=== PATIENT | male | born 1940 | race Two or more races ===

== ENCOUNTER 2024-06-29 13:05 | Outpatient (RCR) | payer MEDICARE, MEDICAID, SELFPAY ==
--- NOTE | 2024-06-29 16:30 | CTCCONSULT_ITS ---
[facility] [address] [place], [place] [address] Consultation Note Date: 06/29/2024 MR#: [id number] Name: KARL HUDSON : 1940 Dx: C61 prostate cancer Attending physician. Terrie Barnett Referring physician. Adams Falk MD Reason for consultation. Patient with history of prostate CA referred to the cancer treatment center . History of Present Illness: Patient is an 84-year-old gentleman who had diagnosis of prostat e cancer back in November 15, 2018 when he had Ana score 7(3+4) )involving left lobe of the prostate. Patient has been treated with intermittent Lupron injections. PSA which initially remained low but capo to 7.8 on 05/05/2023. Had bone scan 06/05/2022 which had nonspecific uptake in L-spine and bhanu ible area. Plain x-ray did not show any suggestion of mets afterward. CT abdomen pelvis 06/20/2022 w as negative for abdominal pelvic or met disease. Patient just had labs performed at [facility] 06/22/2024 . His PSA was less than 0.1 along with unremarkable labs overall in terms of CBC CMP. Patient state s that he last had his Lupron injections from a doctor in [place] in March 31 2024. He is thus due f or another injection around mid July and would like to continue with this. He is not interested in any locally directed therapy to his prostate cancer in terms of surgery or radiation. Patient rep ortedly tolerated the injections well. Patient who has been followed by several urologists only rece ntly has been followed by Dr. Falk. Past Medical History: High blood pressure gallbladder disease Meds. 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 Social drinker non-sm oker Review of Systems: Denies bone pain has had sweats shortness of breath exertion heartburn increased t jesus leak urine mole in chest nocturia easy bruising Physical Exam: General: Adequate nourished appearing gentleman in no acute distress HEENT: 2 tiny moles in the low neck no adenopathy CV: Chest clear to auscultation heart regular rate and rhythm ABD: Soft no organomegaly or tenderness EXT: No cyanosis clubbing or edema Assessment:#1. Patient with history of prostate CA [place] score 7 (3+4) following biopsy November 2018 . #2. Treated largely with hormone manipulation intermittently over the years, most recently 3 months Lupron injections given in March 31 in [place]. Also taking Casodex prescribed to him by primary pro vider. #3. Most recent lab shows PSA be less than 0.1 indicating the hormone manipulation is still working. #4 Patient desires to continue with hormone manipulation which I believe is reasonable and is tolerat ing treatment well. Side effects explained. #5. told patient about taking Citracal twice daily. #6. No recent imaging studies regarding the prostate cancer. I believe PET scan would be reasonable at this time and we will order this. #7. Thank you much allow me to evaluate and manage this patient. Cc: Bry Barnett PA-C family medicine [facility] Adams Falk MD Electronically signed by: Tanmay Kolb MD, DABR 06/29/2024 4:28 PM
== END 2024-07-16 23:59 | disposition home or self-care (01) ==
LOC: SCTC 13:05
PROVIDERS: PCP Physician Assistant; Referring Provider Urology; Visit Provider Radiology Therapeutic Radiology
DX: C61 Malignant neoplasm of prostate (principal); Z79.818 Long term (current) use of other agents affecting estrogen receptors and estrogen levels
CPT/HCPCS: 99213; G0463

== ENCOUNTER 2024-07-25 07:17 | Outpatient (RCR) | payer MEDICARE, MEDICAID, SELFPAY | END 2024-08-16 23:59 | disposition home or self-care (01) | LOC: SCTC 07:17 | PROVIDERS: PCP Physician Assistant; Referring Provider Physician Assistant; Visit Provider Radiology Therapeutic Radiology | DX: Z51.11 Encounter for antineoplastic chemotherapy (principal); C61 Malignant neoplasm of prostate | CPT/HCPCS: 96402; J9217 ==

== ENCOUNTER → 2024-07-25 | Outpatient (CLI) | payer MEDICARE, MEDICAID, SELFPAY ==
--- NOTE | 2024-07-28 12:30 | XR_ITS ---
EXAMINATION: PET/CT FUSION SKULL TO THIGH EXAM DATE AND TIME: July 28, 2024 1348 hours INDICATIONS: Diagnosis prostate carcinoma staging prior to treatment CTDI:vol (mGy) 7.70 DLP: (mGycm) 703.54 PROCEDURE: 16.4 mCi FDG was administered intravenously To allow for distribution and uptake of radiotracer, the patient was allowed to rest quietly in a shielded room. Imaging was performed on an integrated 16-slice PET/CT scanner, with scanning from the skull base to the mid thigh. Serum blood glucose at the time of the injection was measured 96 mg/dL. CT scanning was performed without oral or intravenous contrast material. FINDINGS: Head and Neck: There is no dimitris hypermetabolism in the neck. The visualized portions of the brain are normal in appearance on CT. Chest: There is no dimitris hypermetabolism in the chest. There are no pulmonary nodules. Abdomen and Pelvis: There is no dimitris hypermetabolism in retroperitoneal or pelvic chains. The spleen is normal in size and FDG avidity. Musculoskeletal: Marrow uptake is within normal range. IMPRESSION: No findings of metastatic disease
== END | disposition home or self-care (01) ==
PROVIDERS: PCP Family Medicine; Referring Provider Radiology Therapeutic Radiology; Visit Provider Radiology Therapeutic Radiology
DX: C61 Malignant neoplasm of prostate (principal)
CPT/HCPCS: 78815; 96402; A9552

== ENCOUNTER → 2024-07-28 | Outpatient (CLI) | payer MEDICARE, MEDICAID, SELFPAY | END | disposition home or self-care (01) | LOC: CDIM 12:43 | PROVIDERS: PCP Physician Assistant; Referring Provider Radiology Therapeutic Radiology; Visit Provider Radiology Therapeutic Radiology | DX: C61 Malignant neoplasm of prostate (principal) ==

== ENCOUNTER → 2024-10-11 | Outpatient (BNVA) | payer MEDICARE, MEDICAID, SELFPAY | END | disposition home or self-care (01) | PROVIDERS: PCP Physician Assistant; Referring Provider Physician Assistant; Visit Provider Urology | DX: C61 Malignant neoplasm of prostate (principal); Z80.42 Family history of malignant neoplasm of prostate; I10 Essential (primary) hypertension; I25.10 Atherosclerotic heart disease of native coronary artery without angina pectoris; G20.A1 Parkinson's disease without dyskinesia, without mention of fluctuations | CPT/HCPCS: 99212; G0463 ==

== ENCOUNTER 2024-10-31 14:35 | Outpatient (RCR) | payer MEDICARE, MEDICAID, SELFPAY ==
--- NOTE | 2024-10-27 13:00 | CTCFLWUP_ITS ---
[facility] [address] [place], [place] [address] FOLLOW-UP NOTE Date: 10/27/2024 MR#: [id number] Name: KARL HUDSON : 1940 Dx: C61 Malignant neoplasm of prostate Identification. History of prostate CA diagnosed November 15, 2018 Ana score 7 involving left lobe of the prostate. (3+4) Patient reportedly had limited Lupron injections under a prior urologist direction. Most recent PSA had risen to 7.8 on 05/05/2023. Bone scan 06/05/2022 with nonspecific uptake with plain x-ray did not suggest mets. CT of the pelvis 06/20/2022 negative for abdominal met disease. PSA less than 0.1 and unremarkable in terms of CMP CBC overall 06/22/2024. PET scan ordered on 07/28/2024 did not show any evidence of mets. Patient feeling well would like to just continue with the Lupron injections and not get any other form of treatment.. I will order labs prior to his next visit in 3 months and continue with the Lupron injections. Side effects explained. Told to take Citracal twice daily. Electronically signed by: Tanmay Kolb M.D. 10/27/2024 12:58 PM
== END 2024-11-14 23:59 | disposition home or self-care (01) ==
LOC: SCTC 14:35
PROVIDERS: PCP Physician Assistant; Referring Provider Radiology Therapeutic Radiology; Visit Provider Radiology Therapeutic Radiology
DX: Z51.11 Encounter for antineoplastic chemotherapy (principal); C61 Malignant neoplasm of prostate; Z79.818 Long term (current) use of other agents affecting estrogen receptors and estrogen levels
CPT/HCPCS: 96402; 99212; J9217; G0463

== ENCOUNTER → 2025-01-30 | Outpatient (CLI) | payer MEDICARE, MEDICAID, SELFPAY ==
[2025-01-30 14:48] LABS: Basophils % (Auto) 1 % (0-2.5); Eosinophils # (Auto) 0.1 Thou/mm3 (0.0-0.5); Eosinophils % (Auto) 1 % (0-10); Hematocrit 37.1 % (41.0-53.0); Immature Granulocytes % (Auto) 0 % (0-0); Immature Granulocytes Auto 0.01 Thou/mm3 (0.00-0.00); Lymphocytes # (Auto) 1.4 Thou/mm3 (1.0-4.8); Lymphocytes % (Auto) 33 % (10-50); Mean Corpuscular Hemoglobin 34.9 pg (25.0-35.0); Mean Corpuscular Volume 100 fL (80-100); Monocytes # (Auto) 0.3 Thou/mm3 (0.0-0.8); Monocytes % (Auto) 8 % (0-12); Neutrophils # (Auto) 2.5 Thou/mm3 (1.8-7.7); Neutrophils % (Auto) 57 % (37-80); Nucleated Red Blood Cell % 0 /100 WBC (0); Platelet Count 302 Thou/mm3 (140-440); RDW Standard Deviation 42.9 fL (35.1-43.9); Red Blood Count 3.73 Miln/mm3 (4.50-5.90); White Blood Count 4.3 Thou/mm3 (3.8-10.6)
[2025-01-30 15:07] LABS: Prostate Specific Antigen < 0.10 ng/mL (0-4.00)
[2025-01-30 15:14] LABS: Alanine Aminotransferase 9 U/L (10-49); Albumin/Globulin Ratio 1.6 (1.2-2.2); Alkaline Phosphatase 104 U/L (46-116); Anion Gap 9 (7-16); Aspartate Amino Transferase 19 U/L (0-34); BUN/Creatinine Ratio 23 Ratio (12-20); Bilirubin,Total 0.5 mg/dL (0.3-1.2); Blood Urea Nitrogen 14 mg/dL (9-23); Calcium 9.1 mg/dL (8.3-10.6); Calcium (Corrected) 9.1 mg/dL (8.5-10.1); Carbon Dioxide 28.7 mMol/L (20.0-31.0); Chloride 104 mMol/L (98-107); Creatinine (Component) 0.6 mg/dL (0.6-1.3); Globulin 2.5 gm/dL (2.3-3.5); Glucose 99 mg/dL (74-106); Osmolality,Calculated 283 (275-295); Potassium 4.6 mMol/L (3.4-5.1); Sodium 142 mMol/L (136-145); Total Protein 6.5 gm/dL (5.7-8.2); eGFR > 60 See Note
== END | disposition home or self-care (01) ==
LOC: SCTO 13:55
PROVIDERS: PCP Physician Assistant; Referring Provider Radiology Therapeutic Radiology; Visit Provider Radiology Therapeutic Radiology
DX: C61 Malignant neoplasm of prostate (principal)
CPT/HCPCS: 36415; 80053; 84153; 85025

== ENCOUNTER 2025-02-03 09:15 | Outpatient (RCR) | payer MEDICARE, MEDICAID, SELFPAY ==
--- NOTE | 2025-02-02 09:57 | CTCFLWUP_ITS ---
[facility] [address] [place], [place] [address] FOLLOW-UP NOTE Date: 02/02/2025 MR#: [id number] Name: KARL HUDSON : 1940 Dx: C61 Malignant neoplasm of prostate Identification. History of prostate CA diagnosed November 15, 2018 Ana score 7 involving left lobe of the prostate (3+4) Patient reportedly had limited Lupron injection under prior urologist direction. PSA capo to 7.8 05/05/2023. Bone scan 06/05/2022 with nonspecific uptake with plain x-ray which did not suggest mets. CT of the pelvis 06/20/2022 negative for abdominal mets disease. PET scan 07/28/2024 did not show any evidence of mets. Patient wanting to continue with the Lupron injections and did not want any other treatments. This was reinitiated 07/25/2024 and thus far had 2 injections 07/25/2024 and 10/31/2024. Most recent labs 01/30/2025 WBC 4.3 hemoglobin 13.0 platelets 302 thousand. PSA less than 0.10. Patient is taking Citracal calcium with vitamin D. Experiences hot flashes but no other major medical conditions. Assessment.1. 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 2. After 2 Lupron injections 3 months apart PSA less than 0.1. 3. Tolerating the Lupron injections well. Taking Citracal calcium and vitamin D. 4. See patient again in 3 months after receiving another Lupron injection. Electronically signed by: Tanmay Kolb M.D. 02/02/2025 9:55 AM
== END 2025-02-13 23:59 | disposition home or self-care (01) ==
LOC: SCTC 09:15
PROVIDERS: PCP Physician Assistant; Referring Provider Physician Assistant; Visit Provider Radiology Therapeutic Radiology
DX: Z51.11 Encounter for antineoplastic chemotherapy (principal); C61 Malignant neoplasm of prostate
CPT/HCPCS: 96402; 99213; J9217; G0463

== ENCOUNTER → 2025-02-06 | Outpatient (CLI) | payer MEDICARE, MEDICAID, SELFPAY ==
[2025-02-06 09:59] LABS: Alanine Aminotransferase 19 U/L (10-49); Albumin, Serum 4.1 gm/dL (3.4-4.8); Alkaline Phosphatase 102 U/L (46-116); Aspartate Amino Transferase 21 U/L (0-34); Bilirubin,Direct 0.2 mg/dL (0.0-0.3); Bilirubin,Total 0.7 mg/dL (0.3-1.2); Cardiac Risk Estimate 2.6 RATIO (4.0-6.7); Cholesterol 155 mg/dL (132-200); HDL Cholesterol 59 mg/dL (40-60); LDL Cholesterol,Calculated 83 mg/dL (0-130); Total Protein 6.5 gm/dL (5.7-8.2); Triglycerides 64 mg/dL (30-150)
[2025-02-09 06:59] LABS: Direct LDL* 89 mg/dL (<100)
== END | disposition home or self-care (01) ==
LOC: COPL 08:42
PROVIDERS: PCP Physician Assistant; Referring Provider Internal Medicine Cardiovascular Disease; Visit Provider Internal Medicine Cardiovascular Disease
DX: E78.49 Other hyperlipidemia (principal); I10 Essential (primary) hypertension
CPT/HCPCS: 36415; 80061; 80076; 83721

== ENCOUNTER → 2025-03-16 | Outpatient (CLI) | payer MEDICARE, MEDICAID, SELFPAY ==
[2025-03-16 09:50] LABS: Vitamin D 25 Hydroxy Total 28.8 ng/mL (7.3-40.2)
[2025-03-16 09:54] LABS: Free T4 (Free Thyroxine) 1.06 ng/dL (0.89-1.76); Thyroid Stimulating Hormone 1.75 uIU/mL (0.55-4.78)
[2025-03-20 15:34] LABS: PSA, Free <0.10 ng/mL; PSA, Total <0.1 ng/mL (< OR = 4.0)
[2025-03-21 14:10] LABS: T3,Total* 78 ng/dL (76-181)
== END | disposition home or self-care (01) ==
PROVIDERS: PCP Physician Assistant; Referring Provider Physician Assistant; Visit Provider Physician Assistant
DX: E55.9 Vitamin D deficiency, unspecified (principal); N40.0 Benign prostatic hyperplasia without lower urinary tract symptoms; Z13.29 Encounter for screening for other suspected endocrine disorder
CPT/HCPCS: 36415; 82306; 84153; 84154; 84439; 84443; 84480

== ENCOUNTER → 2025-05-08 | Outpatient (CLI) | payer MEDICARE, MEDICAID, SELFPAY ==
[2025-05-08 10:06] LABS: Basophils # (Auto) 0.0 Thou/mm3 (0.0-0.2); Basophils % (Auto) 1 % (0-2.5); Eosinophils # (Auto) 0.1 Thou/mm3 (0.0-0.5); Eosinophils % (Auto) 3 % (0-10); Hematocrit 40.6 % (41.0-53.0); Hemoglobin 13.3 g/dL (13.5-16.0); Immature Granulocytes Auto 0.01 Thou/mm3 (0.00-0.00); Lymphocytes # (Auto) 1.3 Thou/mm3 (1.0-4.8); Lymphocytes % (Auto) 33 % (10-50); Mean Corpuscular HGB Conc 32.8 g/dl (31.0-37.0); Mean Corpuscular Hemoglobin 32.9 pg (25.0-35.0); Mean Corpuscular Volume 101 fL (80-100); Monocytes # (Auto) 0.3 Thou/mm3 (0.0-0.8); Monocytes % (Auto) 9 % (0-12); Neutrophils # (Auto) 2.1 Thou/mm3 (1.8-7.7); Neutrophils % (Auto) 54 % (37-80); Nucleated Red Blood Cell # 0.00 Thou/mm3 (0.00-0.00); Nucleated Red Blood Cell % 0 /100 WBC (0); Platelet Count 261 Thou/mm3 (140-440); RDW Standard Deviation 42.9 fL (35.1-43.9); Red Blood Count 4.04 Miln/mm3 (4.50-5.90); White Blood Count 4.0 Thou/mm3 (3.8-10.6)
[2025-05-08 10:19] LABS: Prostate Specific Antigen < 0.10 ng/mL (0-4.00)
[2025-05-08 10:20] LABS: Alanine Aminotransferase < 7 U/L (10-49); Albumin, Serum 4.3 gm/dL (3.4-4.8); Albumin/Globulin Ratio 1.7 (1.2-2.2); Alkaline Phosphatase 105 U/L (46-116); Anion Gap 8 (7-16); Aspartate Amino Transferase 22 U/L (0-34); BUN/Creatinine Ratio 23 Ratio (12-20); Bilirubin,Total 0.9 mg/dL (0.3-1.2); Blood Urea Nitrogen 14 mg/dL (9-23); Calcium 9.4 mg/dL (8.3-10.6); Calcium (Corrected) 9.4 mg/dL (8.5-10.1); Carbon Dioxide 27.2 mMol/L (20.0-31.0); Chloride 109 mMol/L (98-107); Creatinine (Component) 0.6 mg/dL (0.6-1.3); Globulin 2.6 gm/dL (2.3-3.5); Glucose 89 mg/dL (74-106); Osmolality,Calculated 286 (275-295); Potassium 4.1 mMol/L (3.4-5.1); Sodium 144 mMol/L (136-145); Total Protein 6.9 gm/dL (5.7-8.2); eGFR > 60 See Note
== END | disposition home or self-care (01) ==
LOC: SCTO 08:58
PROVIDERS: PCP Physician Assistant; Referring Provider Radiology Therapeutic Radiology; Visit Provider Radiology Therapeutic Radiology
DX: C61 Malignant neoplasm of prostate (principal)
CPT/HCPCS: 36415; 80053; 84153; 85025

== ENCOUNTER 2025-05-10 15:05 | Outpatient (RCR) | payer MEDICARE, MEDICAID, SELFPAY ==
--- NOTE | 2025-05-09 15:40 | CTCFLWUP_ITS ---
[facility] [address] [place], [place] [address] FOLLOW-UP NOTE Date: 05/09/2025 MR#: [id number] Name: KARL HUDSON : 1940 Dx: C61 Malignant neoplasm of prostate Identification. History of prostate CA diagnosed November 15, 2018 Ana score 7 involving left lobe of the prostate (3+4) Patient reportedly had limited Lupron injection under prior urologist direction. PSA capo to 7.8 on 05/05/2023. Bone scan 06/05/2022 with nonspecific uptake with plain x-ray which did not suggest mets. CT of the pelvis 06/20/2022 negative for abdominal mets disease. PET scan 07/28/2024 did not show any evidence of mets. Wished to continue with Lupron injection did not want any other treatments including radiation or surgery. Most recent labs 05/08/2025 PSA less than 0.10. Reminded patient to take calcium and vitamin D. If well-tolerated we may continue this for 1 more year. Electronically signed by: Tanmay Kolb M.D. 05/09/2025 3:38 PM
== END 2025-05-16 23:59 | disposition home or self-care (01) ==
LOC: SCTC 15:05
PROVIDERS: PCP Physician Assistant; Referring Provider Physician Assistant; Visit Provider Radiology Therapeutic Radiology
DX: Z51.11 Encounter for antineoplastic chemotherapy (principal); C61 Malignant neoplasm of prostate
CPT/HCPCS: 96402; 99213; J9217; G0463

== ENCOUNTER → 2025-08-16 | Outpatient (CLI) | payer MEDICARE, MEDICAID, SELFPAY ==
[2025-08-16 11:05] LABS: Basophils # (Auto) 0.0 Thou/mm3 (0.0-0.2); Basophils % (Auto) 1 % (0-2.5); Eosinophils # (Auto) 0.1 Thou/mm3 (0.0-0.5); Eosinophils % (Auto) 1 % (0-10); Hematocrit 42.2 % (41.0-53.0); Hemoglobin 14.0 g/dL (13.5-16.0); Immature Granulocytes Auto 0.01 Thou/mm3 (0.00-0.00); Lymphocytes # (Auto) 1.2 Thou/mm3 (1.0-4.8); Lymphocytes % (Auto) 28 % (10-50); Mean Corpuscular HGB Conc 33.2 g/dl (31.0-37.0); Mean Corpuscular Hemoglobin 33.5 pg (25.0-35.0); Mean Corpuscular Volume 101 fL (80-100); Monocytes # (Auto) 0.2 Thou/mm3 (0.0-0.8); Monocytes % (Auto) 5 % (0-12); Neutrophils # (Auto) 2.9 Thou/mm3 (1.8-7.7); Neutrophils % (Auto) 65 % (37-80); Nucleated Red Blood Cell # 0.00 Thou/mm3 (0.00-0.00); Nucleated Red Blood Cell % 0 /100 WBC (0); Platelet Count 277 Thou/mm3 (140-440); RDW Standard Deviation 43.9 fL (35.1-43.9); Red Blood Count 4.18 Miln/mm3 (4.50-5.90); White Blood Count 4.4 Thou/mm3 (3.8-10.6)
[2025-08-16 11:33] LABS: Prostate Specific Antigen < 0.10 ng/mL (0-4.00)
[2025-08-16 11:36] LABS: Alanine Aminotransferase 20 U/L (10-49); Albumin, Serum 4.4 gm/dL (3.4-4.8); Albumin/Globulin Ratio 1.6 (1.2-2.2); Alkaline Phosphatase 105 U/L (46-116); Anion Gap 9 (7-16); Aspartate Amino Transferase 20 U/L (0-34); BUN/Creatinine Ratio 15 Ratio (12-20); Bilirubin,Total 1.0 mg/dL (0.3-1.2); Blood Urea Nitrogen 9 mg/dL (9-23); Calcium 9.5 mg/dL (8.3-10.6); Calcium (Corrected) 9.5 mg/dL (8.5-10.1); Carbon Dioxide 29.8 mMol/L (20.0-31.0); Chloride 107 mMol/L (98-107); Creatinine (Component) 0.6 mg/dL (0.6-1.3); Globulin 2.7 gm/dL (2.3-3.5); Glucose 104 mg/dL (74-106); Osmolality,Calculated 289 (275-295); Potassium 4.4 mMol/L (3.4-5.1); Sodium 146 mMol/L (136-145); Total Protein 7.1 gm/dL (5.7-8.2); eGFR > 60 See Note
== END | disposition home or self-care (01) ==
LOC: SCTO 10:16
PROVIDERS: PCP Physician Assistant; Referring Provider Radiology Therapeutic Radiology; Visit Provider Radiology Therapeutic Radiology
DX: C61 Malignant neoplasm of prostate (principal)
CPT/HCPCS: 36415; 80053; 84153; 85025